=== PATIENT | male | born 1985 | race African-American/Black ===

== ENCOUNTER 2021-07-04 15:32 | Inpatient (IN) | payer OTHER ==
[~2021-07-04] VITALS: Ht 198.1 cm; Wt 64.9 kg
[2021-07-04] MEDS ORDERED: ONDANSETRON HCL 4MG/2ML INJ IV STA (16:12)
[2021-07-04] MEDS ORDERED: SODIUM CHLORIDE 0.9% 1,000 ML IV ONE (16:15)
[2021-07-04] MEDS ORDERED: DIPHENHYDRAMINE 50MG/ML VIAL IV ONE (16:15)
[2021-07-04] MEDS ORDERED: LORAZEPAM 2MG/ML CPJ IV ONE (16:15)
[2021-07-04 16:42] LABS: BASOPHILS % 0.8 % (0.0-2.0); EOSINOPHILS % 0.9 % (0.0-5.0); HEMATOCRIT. 40.5 % (42.0-52.0); HEMOGLOBIN. 14.2 g/dL (14.0-18.0); LYMPHOCYTES % 19.8 % (20.0-50.0); MEAN CORPUSCULAR HEMOGLOBIN 33.5 pg (28.0-32.0); MEAN CORPUSCULAR VOLUME 95.6 fL (80.0-94.0); MEAN PLATELET VOLUME 9.5 fl (7.4-10.4); MONOCYTES % 10.8 % (2.0-8.0); NEUTROPHILS % 67.7 % (40.0-76.0); PLATELET 80 x1000/uL (130-400); RED BLOOD CELL COUNT 4.23 mill/uL (4.7-6.1); RED CELL DISTRIBUTION WIDTH 13.7 % (11.6-14.6)
[2021-07-04 16:45] LABS: CLARITY URINE CLEAR (CLEAR); COLOR URINE DARK YELLOW (YELLOW); KETONES URINE 2+ (NEGATIVE); LEUKOCYTE ESTERASE URINE TRACE (NEGATIVE); NITRITE URINE POSITIVE (NEGATIVE); OCCULT BLOOD URINE NEGATIVE (NEGATIVE); PH URINE 6.5 (4.5-8.0); PROTEIN URINE 1+ (NEGATIVE); SPECIFIC GRAVITY URINE 1.016 (1.005-1.030)
[2021-07-04 16:48] LABS: CHLORIDE 94 mEq/L (98-107)
[2021-07-04 16:59] LABS: ETHANOL BLOOD 154 mg/dL
[2021-07-04 17:32] LABS: *AMPHETAMINES SCREEN URINE NEGATIVE (NEGATIVE); *BARBITURATES SCREEN URINE NEGATIVE (NEGATIVE); *BENZODIAZEPINES SCREEN URINE NEGATIVE (NEGATIVE); *COCAINE SCREEN URINE NEGATIVE (NEGATIVE); CANNABINOID URINE SCREEN NEGATIVE (NEGATIVE); METHADONE URINE SCREEN NEGATIVE (NEGATIVE); OPIATES URINE SCREEN NEGATIVE (NEGATIVE); PHENCYCLIDINE URINE SCREEN NEGATIVE (NEGATIVE)
[2021-07-04] MEDS ORDERED: GUAIFENESIN 200MG/10ML SUGAR FREE UDC PO PRN (18:00)
[2021-07-04] MEDS ORDERED: DOCUSATE SODIUM 100MG CAPSULE PO PRN (18:00)
[2021-07-04] MEDS ORDERED: ZOLPIDEM TARTRATE 5MG TABLET PO PRN (18:00)
[2021-07-04] MEDS ORDERED: MAGNESIUM/ALUMINUM HYDROXIDE/SIMETHICONE 30ML UDC PO PRN (18:00)
[2021-07-04] MEDS ORDERED: KETOROLAC 15MG/ML VIAL IV PRN (18:00)
[2021-07-04] MEDS ORDERED: ONDANSETRON HCL 4MG/2ML INJ IV PRN (18:00)
[2021-07-04] MEDS ORDERED: IPRATROPIUM/ALBUTEROL 0.5-3(2.5)MG/3ML NEB NEB PRN (18:00)
[2021-07-04] MEDS ORDERED: LORAZEPAM 2MG/ML CPJ IV PRN (18:00)
[2021-07-04] MEDS ORDERED: CLONIDINE 0.1MG TABLET PO PRN (18:00)
[2021-07-04] MEDS ORDERED: NITROGLYCERIN 0.4MG TABLET SL SL PRN (18:00)
[2021-07-04] MEDS ORDERED: ACETAMINOPHEN 325MG TABLET PO PRN ×2 (18:00)
[2021-07-04] MEDS ORDERED: KCL 20MEQ/100ML PREMIX 100 ML IV NR ×2 (18:00→20:00)
[2021-07-04] MEDS ORDERED: IOHEXOL-300 100 ML BOTTLE ONE (19:47)
[2021-07-04 20:00] VITALS: BP 124/84
[2021-07-04] MEDS ORDERED: POTASSIUM CHLORIDE 20MEQ TABLET SR PO NR (20:00)
[2021-07-04] MEDS ORDERED: ENOXAPARIN 30MG/0.3ML SYR SUBCUT SCH (20:00)
[2021-07-04 20:13] LABS: FOLIC ACID (FOLATE) SERUM 3.3 ng/mL (>5.38)
[2021-07-04 20:45] VITALS: BP 124/84
[2021-07-04] MEDS: CHLORDIAZEPOXIDE 25MG CAPSULE PO SCH (22:27)
[2021-07-05] VITALS (7 sets, daily range): BP systolic 103–132; BP diastolic 70–101
[2021-07-05 01:15] LABS: CREATINE KINASE 223 IU/L (39-308); CREATINE KINASE MB FRACTION 2.1 ng/mL (0.5-3.6)
[2021-07-05] MEDS: CHLORDIAZEPOXIDE 25MG CAPSULE PO SCH ×3 (06:10→21:44)
[2021-07-05 07:52] LABS: BASOPHILS % 0.8 % (0.0-2.0); EOSINOPHILS % 0.6 % (0.0-5.0); HEMATOCRIT. 34.3 % (42.0-52.0); HEMOGLOBIN. 11.9 g/dL (14.0-18.0); LYMPHOCYTES % 15.3 % (20.0-50.0); MEAN CORPUSCULAR HEMOGLOBIN 33.7 pg (28.0-32.0); MEAN CORPUSCULAR VOLUME 96.8 fL (80.0-94.0); MEAN PLATELET VOLUME 10.8 fl (7.4-10.4); MONOCYTES % 12.1 % (2.0-8.0); NEUTROPHILS % 71.2 % (40.0-76.0); PLATELET 66 x1000/uL (130-400); RED BLOOD CELL COUNT 3.54 mill/uL (4.7-6.1); RED CELL DISTRIBUTION WIDTH 13.9 % (11.6-14.6)
[2021-07-05 07:56] LABS: CHLORIDE 96 mEq/L (98-107)
[2021-07-05 08:18] LABS: CREATINE KINASE MB FRACTION 1.5 ng/mL (0.5-3.6)
[2021-07-05] MEDS ORDERED: PANTOPRAZOLE SODIUM 40 MG/VIAL IV SCH (09:00)
[2021-07-05] MEDS ORDERED: LACTULOSE 20G/30ML UDC PO NR (09:45)
[2021-07-05] MEDS ORDERED: LACTULOSE 20G/30ML UDC PO PRN (09:45)
[2021-07-05] MEDS ORDERED: MAGNESIUM 2 G PREMIX 50 ML IV NR (11:00)
[2021-07-05] MEDS ORDERED: POTASSIUM PHOS,M-BASIC-D-BASIC 30 MMOL in DEXT 5% WATER 500 ML IV ONE (13:00)
[2021-07-05] MEDS ORDERED: THIAMINE HCL 100MG TABLET PO SCH (13:30)
[2021-07-06] MEDS ORDERED: MULTIVITAMINS,THER W-MINERALS TABLET PO SCH (09:00)
[2021-07-06] MEDS ORDERED: FOLIC ACID 1MG TABLET PO SCH (09:00)
== END 2021-07-05 22:45 | disposition left against medical advice (07) | DRG 641 ==
LOC: ER 15:32 → 7WST 17:58 → ENRESERV 19:03
PROVIDERS: ADMIT Internal Medicine; ATTEND Internal Medicine
DX: E87.6 Hypokalemia (principal); F10.239 Alcohol dependence with withdrawal, unspecified; K92.2 Gastrointestinal hemorrhage, unspecified; E87.1 Hypo-osmolality and hyponatremia; E86.0 Dehydration; R74.01 Elevation of levels of liver transaminase levels; F43.10 Post-traumatic stress disorder, unspecified; Z71.41 Alcohol abuse counseling and surveillance of alcoholic
CPT/HCPCS: 36415; 73560; 74177; 80053; 80305; 80320; 81003; 82140; 82550; 82553; 82607; 82746; 83036; 83540; 83550; 83735; 84100; 84443; 84484; 85025; 93005; 93306; 93970; 99285; C9113; J1200; J2060; J2405; J3475; J3480; J3490; J7030; J7060; Q9967; G0480

== ENCOUNTER 2021-08-29 11:24 | Emergency (ER) | payer OTHER ==
[~2021-08-29] VITALS: Ht 198.1 cm; Wt 71.0 kg
[2021-08-29 11:44] VITALS: BP 141/95
[2021-08-29] MEDS ORDERED: MAGNESIUM/ALUMINUM HYDROXIDE/SIMETHICONE 30ML UDC PO STA (12:28)
[2021-08-29] MEDS ORDERED: ONDANSETRON HCL 4MG/2ML INJ IV STA (12:28)
[2021-08-29] MEDS ORDERED: VISCOUS LIDOCAINE 2% 15 ML UDC PO STA (12:28)
[2021-08-29] MEDS ORDERED: SODIUM CHLORIDE 0.9% 1,000 ML IV ONE (12:30)
[2021-08-29 12:51] LABS: BASOPHILS % 0.4 % (0.0-2.0); EOSINOPHILS % 0.3 % (0.0-5.0); HEMATOCRIT. 45.8 % (42.0-52.0); HEMOGLOBIN. 15.4 g/dL (14.0-18.0); LYMPHOCYTES % 12.7 % (20.0-50.0); MEAN CORPUSCULAR HEMOGLOBIN 33.4 pg (28.0-32.0); MEAN CORPUSCULAR VOLUME 99.3 fL (80.0-94.0); MEAN PLATELET VOLUME 9.1 fl (7.4-10.4); MONOCYTES % 7.2 % (2.0-8.0); NEUTROPHILS % 79.4 % (40.0-76.0); PLATELET 64 x1000/uL (130-400); RED BLOOD CELL COUNT 4.61 mill/uL (4.7-6.1); RED CELL DISTRIBUTION WIDTH 13.7 % (11.6-14.6)
[2021-08-29 13:01] LABS: CHLORIDE 91 mEq/L (98-107)
[2021-08-29 13:35] LABS: ETHANOL BLOOD < 10 mg/dL
[2021-08-29 14:14] LABS: CLARITY URINE CLOUDY (CLEAR); COLOR URINE ORANGE (YELLOW); KETONES URINE 3+ (NEGATIVE); LEUKOCYTE ESTERASE URINE 1+ (NEGATIVE); NITRITE URINE POSITIVE (NEGATIVE); OCCULT BLOOD URINE NEGATIVE (NEGATIVE); PROTEIN URINE 2+ (NEGATIVE); SPECIFIC GRAVITY URINE 1.033 (1.005-1.030)
[2021-08-29 14:54] LABS: *AMPHETAMINES SCREEN URINE NEGATIVE (NEGATIVE); *BARBITURATES SCREEN URINE NEGATIVE (NEGATIVE); *BENZODIAZEPINES SCREEN URINE PRESUMTIVE POSITIVE (NEGATIVE); *COCAINE SCREEN URINE NEGATIVE (NEGATIVE); CANNABINOID URINE SCREEN NEGATIVE (NEGATIVE); METHADONE URINE SCREEN NEGATIVE (NEGATIVE); OPIATES URINE SCREEN NEGATIVE (NEGATIVE); PHENCYCLIDINE URINE SCREEN NEGATIVE (NEGATIVE)
[2021-08-29] MEDS ORDERED: CEPHALEXIN 250MG CAPSULE PO ONE (15:45)
[2021-08-29] MEDS ORDERED: PROT40 MT (15:58)
[2021-08-29] MEDS ORDERED: CEPH500C2 MT (15:58)
== END 2021-08-29 16:08 | disposition home or self-care (01) ==
LOC: ER 11:24
DX: K29.70 Gastritis, unspecified, without bleeding (principal); N39.0 Urinary tract infection, site not specified; N20.0 Calculus of kidney; K70.30 Alcoholic cirrhosis of liver without ascites; E87.6 Hypokalemia; F10.20 Alcohol dependence, uncomplicated; Y90.0 Blood alcohol level of less than 20 mg/100 ml
CPT/HCPCS: 36415; 76705; 80053; 80305; 80320; 81003; 83605; 83690; 85025; 85610; 93005; 96374; 99285; J2405; J7030; G0480

== ENCOUNTER 2021-08-30 21:24 | Emergency (ER) | payer OTHER ==
[~2021-08-30] VITALS: Ht 190.5 cm; Wt 82.0 kg
[~2021-08-30 21:24] MED LIST: CEPH500C2 MT; PROT40 MT
[2021-08-30] MEDS ORDERED: OLANZAPINE 10 MG/VIAL IM ONE (21:30)
[2021-08-30] MEDS ORDERED: MIDAZOLAM HCL 2 MG/2 ML VIAL IM ONE (21:30)
[2021-08-30] MEDS ORDERED: FOLIC ACID 1 MG, THIAMINE HCL 100 MG, MVI, ADULT NO.1 10 ML in DEXTROSE 5% WATER 1,000 ML IV ONE ×4 (21:30)
[2021-08-30 22:38] LABS: CLARITY URINE CLEAR (CLEAR); COLOR URINE DARK YELLOW (YELLOW); KETONES URINE 1+ (NEGATIVE); LEUKOCYTE ESTERASE URINE 1+ (NEGATIVE); NITRITE URINE NEGATIVE (NEGATIVE); OCCULT BLOOD URINE NEGATIVE (NEGATIVE); PROTEIN URINE 2+ (NEGATIVE); SPECIFIC GRAVITY URINE 1.016 (1.005-1.030)
[2021-08-30 22:40] LABS: BASOPHILS % 0.4 % (0.0-2.0); EOSINOPHILS % 0.2 % (0.0-5.0); HEMATOCRIT. 43.1 % (42.0-52.0); HEMOGLOBIN. 14.4 g/dL (14.0-18.0); LYMPHOCYTES % 10.9 % (20.0-50.0); MEAN CORPUSCULAR HEMOGLOBIN 33.5 pg (28.0-32.0); MEAN CORPUSCULAR VOLUME 100.4 fL (80.0-94.0); MEAN PLATELET VOLUME 10.9 fl (7.4-10.4); MONOCYTES % 9.3 % (2.0-8.0); NEUTROPHILS % 79.2 % (40.0-76.0); PLATELET 64 x1000/uL (130-400); RED BLOOD CELL COUNT 4.29 mill/uL (4.7-6.1); RED CELL DISTRIBUTION WIDTH 13.7 % (11.6-14.6)
[2021-08-30] MEDS ORDERED: CEFTRIAXONE 1 G PREMIX 50 ML IV ONE (22:45)
[2021-08-30 22:46] LABS: CHLORIDE 95 mEq/L (98-107)
[2021-08-30 22:49] LABS: *AMPHETAMINES SCREEN URINE NEGATIVE (NEGATIVE); *BARBITURATES SCREEN URINE NEGATIVE (NEGATIVE); *BENZODIAZEPINES SCREEN URINE PRESUMTIVE POSITIVE (NEGATIVE); *COCAINE SCREEN URINE NEGATIVE (NEGATIVE); CANNABINOID URINE SCREEN PRESUMTIVE POSITIVE (NEGATIVE); METHADONE URINE SCREEN NEGATIVE (NEGATIVE); OPIATES URINE SCREEN NEGATIVE (NEGATIVE); PHENCYCLIDINE URINE SCREEN NEGATIVE (NEGATIVE)
[2021-08-30 22:52] LABS: ETHANOL BLOOD < 10 mg/dL
[2021-08-31] MEDS ORDERED: DIAZEPAM 5 MG/ML 2ML CPJ IV ONE (00:30)
[2021-08-31] MEDS: RISPERIDONE 1MG TABLET PO SCH ×2 (11:15→22:57)
[2021-08-31] MEDS: FLUOXETINE HCL 10 MG CAPSULE PO SCH (11:15)
[2021-09-01] MEDS ORDERED: DIPHENHYDRAMINE 50MG CAPSULE PO ONE (06:45)
[2021-09-01] MEDS: RISPERIDONE 1MG TABLET PO SCH ×2 (08:56→21:09)
[2021-09-01] MEDS: FLUOXETINE HCL 10 MG CAPSULE PO SCH (08:56)
[2021-09-01] MEDS ORDERED: ZIPRASIDONE MESYLATE 20MG/VIAL IM ONE (23:45)
[2021-09-02] MEDS: RISPERIDONE 1MG TABLET PO SCH (12:39)
[2021-09-02] MEDS: FLUOXETINE HCL 10 MG CAPSULE PO SCH (12:40)
[2021-09-02] MEDS ORDERED: MIDAZOLAM HCL 2 MG/2 ML VIAL IM ONE (17:30)
[2021-09-03] MEDS: RISPERIDONE 1MG TABLET PO SCH ×3 (00:16→21:18)
[2021-09-03] MEDS: FLUOXETINE HCL 10 MG CAPSULE PO SCH (09:22)
[2021-09-04] MEDS: FLUOXETINE HCL 10 MG CAPSULE PO SCH (08:42)
[2021-09-04] MEDS: RISPERIDONE 1MG TABLET PO SCH (08:42)
[2021-09-04 11:45] VITALS: BP 133/79
== END 2021-09-04 11:45 | disposition home or self-care (01) ==
LOC: ER 21:24
DX: F19.10 Other psychoactive substance abuse, uncomplicated (principal); K74.60 Unspecified cirrhosis of liver; Z87.820 Personal history of traumatic brain injury; Z20.822 Contact with and (suspected) exposure to COVID-19
CPT/HCPCS: 36415; 80053; 80305; 80307; 80320; 80329; 81003; 85025; 96365; 96372; 96375; 99285; C9803; J0696; J2250; J3411; J3486; J3490; J7070; Q0163; U0003; U0005; G0480

== ENCOUNTER 2022-01-31 14:35 | Inpatient (IN) | payer OTHER ==
[~2022-01-31] VITALS: Ht 198.1 cm; Wt 73.5 kg
[2022-01-31] MEDS ORDERED: MAGNESIUM/ALUMINUM HYDROXIDE/SIMETHICONE 30ML UDC PO STA ×2 (19:05)
[2022-01-31] MEDS ORDERED: VISCOUS LIDOCAINE 2% 15 ML UDC PO STA (19:05)
[2022-01-31 19:38] LABS: BASOPHILS % 0.3 % (0.0-2.0); EOSINOPHILS % 1.2 % (0.0-5.0); HEMATOCRIT. 44.2 % (42.0-52.0); HEMOGLOBIN. 14.8 g/dL (14.0-18.0); LYMPHOCYTES % 14.4 % (20.0-50.0); MEAN CORPUSCULAR HEMOGLOBIN 29.9 pg (28.0-32.0); MEAN CORPUSCULAR VOLUME 89.3 fL (80.0-94.0); MONOCYTES % 13.3 % (2.0-8.0); NEUTROPHILS % 70.8 % (40.0-76.0); RED BLOOD CELL COUNT 4.95 mill/uL (4.7-6.1); RED CELL DISTRIBUTION WIDTH 15.5 % (11.6-14.6)
[2022-01-31 19:44] LABS: CHLORIDE 91 mEq/L (98-107); PROTHROMBIN TIME 10.3 sec (9.6-11.0)
[2022-01-31 20:03] LABS: MEAN PLATELET VOLUME 9.7 fl (7.4-10.4); PLATELET 89 x1000/uL (130-400)
[2022-01-31] MEDS ORDERED: SODIUM CHLORIDE 0.9% 1,000 ML IV ONE (21:00)
[2022-01-31] MEDS ORDERED: MORPHINE SULFATE 4 MG/ML CPJ (NOT FOR IM USE) IV ONE (21:15)
[2022-02-01] MEDS ORDERED: KCL 10MEQ/50ML PREMIX 50 ML IV NR (09:00)
[2022-02-01] MEDS ORDERED: ENOXAPARIN 40MG/0.4ML SYR SUBCUT SCH (09:00)
[2022-02-01 11:15] VITALS: BP 121/76
[2022-02-01 12:00] VITALS: BP 129/89
[2022-02-01] MEDS ORDERED: FOLIC ACID 1 MG, THIAMINE HCL 100 MG, MVI, ADULT NO.1 10 ML in SODIUM CHLORIDE 0.9% 1,0... IV ONE ×4 (13:00)
== END 2022-02-01 13:10 | disposition left against medical advice (07) | DRG 440 ==
LOC: ER 14:35 → EDBEDREQSVC 21:44 → EDBEDREQTM 21:44 → 6EST 02-01 00:24 → EDBEDREQTM 02-01 00:33 → EDBEDREQ 02-01 00:33 → CANBEDREQ 02-01 00:53 → 7WST 02-01 11:08
PROVIDERS: ADMIT Internal Medicine; ATTEND Internal Medicine
DX: K85.90 Acute pancreatitis without necrosis or infection, unspecified (principal); K70.30 Alcoholic cirrhosis of liver without ascites; F10.20 Alcohol dependence, uncomplicated; R06.02 Shortness of breath; Z53.29 Procedure and treatment not carried out because of patient's decision for other reasons
CPT/HCPCS: 36415; 74176; 76700; 80053; 84478; 85025; 99285; J2270; J3411; J3480; J3490; J7030

== ENCOUNTER 2022-03-05 22:17 | Emergency (ER) | payer OTHER ==
[~2022-03-05] VITALS: Ht 198.1 cm; Wt 70.0 kg
[2022-03-05 22:34] VITALS: BP 122/84
== END 2022-03-06 00:31 | disposition left against medical advice (07) ==
LOC: ER 22:17
DX: Z53.21 Procedure and treatment not carried out due to patient leaving prior to being seen by health care provider (principal); K70.30 Alcoholic cirrhosis of liver without ascites

== ENCOUNTER 2023-05-16 20:19 | Inpatient (IN) | payer OTHER ==
[~2023-05-16] VITALS: Ht 193 cm; Wt 70.8 kg
[~2023-05-16 20:19] MED LIST changes: -CEPH500C2 MT
[2023-05-16] MEDS: SODIUM CHLORIDE 0.9% 1,000 ML IV ONE (22:42)
[2023-05-16] MEDS: ONDANSETRON HCL 4MG/2ML INJ IV ONE (22:43)
[2023-05-16] MEDS: FAMOTIDINE 20MG/2ML VIAL IV NR (22:43)
[2023-05-16] MEDS: FAMOTIDINE 20MG/2ML VIAL IV ONE (22:43)
[2023-05-16] MEDS: MORPHINE SULFATE 2 MG/ML CPJ (NOT FOR IM USE) IV NR (22:43)
[2023-05-16] MEDS: CEFTRIAXONE 1GM/50ML 50 ML IV NR (22:43)
[2023-05-16] MEDS: ONDANSETRON HCL 4MG/2ML INJ IV NR (22:44)
[2023-05-16 22:46] LABS: DIFFERENTIAL COMMENT 1; HEMATOCRIT. 37.8 % (42.0-52.0); HEMOGLOBIN. 12.3 g/dL (14.0-18.0); MEAN CORPUSCULAR HEMOGLOBIN 34.2 pg (28.0-32.0); MEAN CORPUSCULAR HGB CONC 32.6 g/dL (31.0-37.0); MEAN CORPUSCULAR VOLUME 105.1 fL (80.0-94.0); PLATELET 91 x1000/uL (130-400); RED CELL DISTRIBUTION WIDTH 14.9 % (11.6-14.6); WHITE BLOOD COUNT 7.3 x1000/uL (4.5-11.0)
[2023-05-16 22:55] LABS: INR 1.4; PROTHROMBIN TIME 14.9 sec (9.6-11.0)
[2023-05-16 23:06] LABS: LACTIC ACID 5.1 mmol/L (0.4-2.0)
[2023-05-16 23:11] LABS: ALANINE AMINOTRANSFERASE 42 IU/L (10-49); ALBUMIN 2.7 g/dL (3.2-4.8); ASPARTATE AMINOTRANSFERASE 119 IU/L (<34); CALCIUM 6.9 mg/dL (8.7-10.4); CARBON DIOXIDE 24 mEq/L (21-32); CHLORIDE 98 mEq/L (98-107); CREATININE 0.6 mg/dL (0.6-1.3); ETHANOL BLOOD 366 mg/dL (<10); GLUCOSE 111 mg/dL (70-105); SODIUM 136 mEq/L (136-145); UREA NITROGEN BLOOD 6 mg/dL (9-23)
[2023-05-16 23:14] LABS: POTASSIUM 2.6 mEq/L (3.5-5.1); TROPONIN I HIGH SENSITIVITY < 4 ng/L (3.0-53)
[2023-05-16 23:26] LABS: NUCLEATED RED BLOOD CELLS 2 /100 WBC; PLATELET ESTIMATE DECREASED
[2023-05-16] MEDS: LORAZEPAM 2MG/ML INJ IV NR (23:26)
[2023-05-16 23:27] LABS: ANISOCYTOSIS 1+
[2023-05-17] MEDS: CALCIUM GLUCONATE 1GM PREMIX 50 ML IV NR (00:19)
[2023-05-17] MEDS: FOLIC ACID 1 MG, THIAMINE HCL 100 MG, MVI, ADULT NO.1 10 ML in DEXTROSE 5% WATER 1,000 ML IV ONE (00:30)
[2023-05-17] MEDS: POTASSIUM CHLORIDE 20MEQ/PACKET PO NR (00:31)
[2023-05-17 03:56] VITALS: BP 124/56; PULSE 92; RESP 18; TEMP 97.8
[2023-05-17] MEDS ORDERED: NON FORMULARY PATIENT HOME MED XX SCH (05:00)
[2023-05-17 08:00] VITALS: BP_SYST 119; BP_SYST 97; BP_DIAS 70; BP_DIAS 84; PULSE 77; PULSE 92; RESP 18; TEMP 97.1; TEMP 98.5
[2023-05-17] MEDS: PANTOPRAZOLE SODIUM 40 MG/VIAL IV SCH (08:36)
[2023-05-17 12:00] VITALS: BP 116/85; PULSE 116; RESP 20; TEMP 96.5
[2023-05-17 12:25] LABS: CLARITY URINE CLEAR (CLEAR); COLOR URINE ORANGE (YELLOW); GLUCOSE URINE NEGATIVE (NEGATIVE); KETONES URINE NEGATIVE (NEGATIVE); LEUKOCYTE ESTERASE URINE 1+ (NEGATIVE); NITRITE URINE POSITIVE (NEGATIVE); OCCULT BLOOD URINE NEGATIVE (NEGATIVE); PROTEIN URINE 1+ (NEGATIVE); SPECIFIC GRAVITY URINE 1.021 (1.005-1.030)
[2023-05-17 13:21] LABS: MUCUS URINE TRACE /lpf (NONE/TRACE)
[2023-05-17 13:22] LABS: BACTERIA URINE TRACE; SQUAMOUS EPITHELIAL CELL URINE RARE /lpf (RARE/1+)
[2023-05-17 13:23] LABS: RBC URINE NONE SEEN /hpf (0-2); WBC URINE 0-2 /hpf (0-2)
[2023-05-17 14:33] LABS: POTASSIUM 2.8 mEq/L (3.5-5.1)
[2023-05-17 16:00] VITALS: BP 126/78; PULSE 125; RESP 18; TEMP 97.7
[2023-05-17] MEDS: POTASSIUM CHLORIDE 20MEQ TABLET SR PO NR (16:26)
[2023-05-17] MEDS: MAGNESIUM 4 G PREMIX 100 ML IV NR (16:26)
[2023-05-17 20:00] VITALS: BP 124/85; PULSE 123; RESP 17; TEMP 97.5
[2023-05-18] VITALS: BP 144/81; PULSE 103; RESP 18; TEMP 97.5
[2023-05-18] MEDS: SODIUM BICARBONATE 4% (2.4MEQ) 5ML VIAL IV ONE (07:36)
[2023-05-18] MEDS: LIDOCAINE HCL 1% 10 MG/ML 10ML VIAL ONE (07:36)
[2023-05-18 12:00] VITALS: BP 127/79; PULSE 104; RESP 20; TEMP 97.7
[2023-05-18] MEDS ORDERED: CHLORDIAZEPOXIDE 25MG CAPSULE PO SCH (14:00)
[2023-05-18] MEDS: CEFTRIAXONE 1GM/50ML 50 ML IV SCH (14:57)
[2023-05-18 16:00] VITALS: BP 124/84; PULSE 113; RESP 20; TEMP 97.2
[2023-05-18] MEDS: DEXT 5%/0.45% NACL 1000ML 1,000 ML IV SCH (16:07)
[2023-05-18 16:24] LABS: CALCIUM 7.4 mg/dL (8.7-10.4); CARBON DIOXIDE 28 mEq/L (21-32); CHLORIDE 102 mEq/L (98-107); CREATININE 0.5 mg/dL (0.6-1.3); GLUCOSE 84 mg/dL (70-105); POTASSIUM 3.6 mEq/L (3.5-5.1); SODIUM 137 mEq/L (136-145); UREA NITROGEN BLOOD 6 mg/dL (9-23)
[2023-05-18 16:56] LABS: AMMONIA 265 uMol/L (<32)
[2023-05-18 20:00] VITALS: BP 128/89; PULSE 120; RESP 18; TEMP 97
[2023-05-18] MEDS: FOLIC ACID 1 MG, THIAMINE HCL 100 MG, MVI, ADULT NO.1 10 ML in DEXTROSE 5% WATER 1,000 ML IV SCH (23:52)
[2023-05-18] MEDS: LACTULOSE 20G/30ML UDC PO SCH (23:53)
[2023-05-19 07:29] LABS: HEMATOCRIT 37.2 % (42.0-52.0); HEMOGLOBIN 12.3 g/dL (14.0-18.0); MEAN CORPUSCULAR HEMOGLOBIN 33.9 pg (28.0-32.0); MEAN CORPUSCULAR HGB CONC 33.1 g/dL (31.0-37.0); MEAN CORPUSCULAR VOLUME 102.5 fL (80.0-94.0); PLATELET 79 x1000/uL (130-400); RED BLOOD CELL COUNT 3.63 mill/uL (4.7-6.1); RED CELL DISTRIBUTION WIDTH 14.7 % (11.6-14.6); WHITE BLOOD COUNT 8.6 x1000/uL (4.5-11.0)
[2023-05-19 07:48] LABS: CALCIUM 7.4 mg/dL (8.7-10.4); CARBON DIOXIDE 29 mEq/L (21-32); CHLORIDE 98 mEq/L (98-107); CREATININE 0.5 mg/dL (0.6-1.3); GLUCOSE 105 mg/dL (70-105); PHOSPHORUS 1.4 mg/dL (2.5-4.9); SODIUM 130 mEq/L (136-145); UREA NITROGEN BLOOD 6 mg/dL (9-23)
[2023-05-19 08:00] VITALS: BP 113/85; PULSE 108; RESP 18; TEMP 97
[2023-05-19 12:00] VITALS: BP 125/76; PULSE 114; RESP 18; TEMP 98
[2023-05-19] MEDS ORDERED: POTASSIUM CHLORIDE 20MEQ/PACKET PO SCH (12:15)
[2023-05-19 13:17] LABS: AMMONIA 145 uMol/L (<32)
[2023-05-19] MEDS: POTASSIUM PHOSPHATE 20 MMOL in DEXT 5% WATER 243.3333 ML IV SCH (15:01)
[2023-05-19] MEDS: MAGNESIUM 2 G PREMIX 50 ML IV SCH (15:02)
[2023-05-19 16:00] VITALS: BP 116/77; PULSE 117; RESP 20; TEMP 98.6
[2023-05-19 20:00] VITALS: BP 119/69; PULSE 113; RESP 20; TEMP 98.2
[2023-05-19] MEDS: KCL 20MEQ/100ML PREMIX 100 ML IV SCH (20:30)
[2023-05-19 23:17] LABS: BG BASE EXCESS 5.1 mmol/L (-2.0-2.0); BG CARBOXYHEMOGLOBIN 1.2 % (0.5-1.5); BG DEOXYHEMOGLOBIN 3.7 % (0.0-5.0); BG FRACTION INSPIRED OXYGEN 28; BG HCO3 ACT 26.3 mmol/L (22.0-26.0); BG METHEMOGLOBIN 0.2 % (0.0-1.5); BG OXYGEN SATURATION 96.2 % (92.0-98.5); BG OXYHEMOGLOBIN 94.9 % (94.0-97.0); BG PCO2 28.6 mmHg (35.0-45.0); BG PH 7.582 (7.350-7.450); BG PO2 79.6 mmHg (75.0-100.0); BG TOTAL HEMOGLOBIN 12.8 g/dL (12.0-18.0); BG VENT MODE NASAL CANNULA
[2023-05-20] VITALS: BP 120/83; PULSE 114; RESP 20; TEMP 97.8
[2023-05-20 04:00] VITALS: BP 118/75; PULSE 72; RESP 18; TEMP 97.7
[2023-05-20 06:13] LABS: AMMONIA 74 uMol/L (<32)
[2023-05-20 07:03] LABS: FOLIC ACID (FOLATE) SERUM > 20.00 ng/mL (>5.38); HEPATITIS A AB IGM NEGATIVE (Negative); HEPATITIS B CORE AB IGM NEGATIVE (Negative); HEPATITIS B SURFACE ANTIGEN NEGATIVE (Negative); HEPATITIS C AB NON REACTIVE (Neg) (Negative)
[2023-05-20 08:00] VITALS: BP 124/87; PULSE 116; RESP 20; TEMP 97.7
[2023-05-20] MEDS: RIFAXIMIN 550 MG TABLET NG SCH (09:11)
[2023-05-20] MEDS: LORAZEPAM 2MG/ML INJ IV PRN (11:51)
[2023-05-20 16:00] VITALS: BP 97/63; PULSE 119; RESP 20; TEMP 97.7
[2023-05-20 16:56] LABS: ALANINE AMINOTRANSFERASE 32 IU/L (10-49); ALBUMIN 2.3 g/dL (3.2-4.8); ASPARTATE AMINOTRANSFERASE 78 IU/L (<34); BILIRUBIN DIRECT 3.6 mg/dL (<=3.0); BILIRUBIN TOTAL 4.8 mg/dL (0.1-1.0); CALCIUM 7.3 mg/dL (8.7-10.4); CARBON DIOXIDE 25 mEq/L (21-32); CHLORIDE 102 mEq/L (98-107); CREATININE 0.5 mg/dL (0.6-1.3); GLUCOSE 79 mg/dL (70-105); POTASSIUM 3.3 mEq/L (3.5-5.1); PROTEIN TOTAL 5.3 g/dL (6.0-8.3); SODIUM 134 mEq/L (136-145)
[2023-05-20 17:04] LABS: UREA NITROGEN BLOOD < 5 mg/dL (9-23)
[2023-05-20 20:00] VITALS: BP 108/72; PULSE 132; RESP 20; TEMP 98.2
[2023-05-21] VITALS: BP 115/60; PULSE 79; RESP 20; TEMP 99
[2023-05-21 04:00] VITALS: BP 108/66; PULSE 79; RESP 18; TEMP 97.6
[2023-05-21 08:00] VITALS: BP 93/63; PULSE 112; RESP 18; TEMP 97.9
[2023-05-21] MEDS: POTASSIUM CHLORIDE 20MEQ TABLET SR PO SCH (08:00)
[2023-05-21 12:00] VITALS: BP 127/75; PULSE 122; RESP 18; TEMP 97.5
[2023-05-21 12:08] LABS: HEMATOCRIT. 35.8 % (42.0-52.0); MEAN CORPUSCULAR HEMOGLOBIN 34.2 pg (28.0-32.0); MEAN CORPUSCULAR HGB CONC 33.5 g/dL (31.0-37.0); MEAN CORPUSCULAR VOLUME 102.1 fL (80.0-94.0); MEAN PLATELET VOLUME 9.6 fl (7.4-10.4); PLATELET 110 x1000/uL (130-400); RED BLOOD CELL COUNT 3.51 mill/uL (4.7-6.1); RED CELL DISTRIBUTION WIDTH 15.1 % (11.6-14.6); WHITE BLOOD COUNT 8.3 x1000/uL (4.5-11.0)
[2023-05-21 12:11] LABS: DIFFERENTIAL COMMENT 1
[2023-05-21 12:16] LABS: INR 1.7; PROTHROMBIN TIME 18.3 sec (9.6-11.0)
[2023-05-21 12:31] LABS: BILIRUBIN TOTAL 4.8 mg/dL (0.1-1.0); CALCIUM 7.3 mg/dL (8.7-10.4); CARBON DIOXIDE 25 mEq/L (21-32); CHLORIDE 98 mEq/L (98-107); CREATININE 0.8 mg/dL (0.6-1.3); GLUCOSE 101 mg/dL (70-105); POTASSIUM 3.6 mEq/L (3.5-5.1); SODIUM 129 mEq/L (136-145); UREA NITROGEN BLOOD 7 mg/dL (9-23)
[2023-05-21 12:39] LABS: ANISOCYTOSIS 1+; PLATELET ESTIMATE DECREASED
[2023-05-21 12:43] LABS: AMMONIA 151 uMol/L (<32)
[2023-05-21 16:00] VITALS: BP 103/75; PULSE 121; RESP 18; TEMP 98.6
[2023-05-21 20:00] VITALS: BP 105/76; PULSE 105; RESP 17; TEMP 97.9
[2023-05-22] VITALS: BP 115/76; PULSE 104; RESP 18; TEMP 98
[2023-05-22 04:00] VITALS: BP 112/77; PULSE 96; RESP 17; TEMP 97.5
[2023-05-22] MEDS: SODIUM CHLORIDE 0.9% 1,000 ML IV SCH (06:45)
[2023-05-22 06:49] LABS: INR 1.6; PROTHROMBIN TIME 17.5 sec (9.6-11.0)
[2023-05-22 06:59] LABS: CALCIUM 7.6 mg/dL (8.7-10.4); CARBON DIOXIDE 24 mEq/L (21-32); CHLORIDE 101 mEq/L (98-107); CREATININE 0.8 mg/dL (0.6-1.3); GLUCOSE 77 mg/dL (70-105); POTASSIUM 4.1 mEq/L (3.5-5.1); SODIUM 133 mEq/L (136-145); UREA NITROGEN BLOOD 9 mg/dL (9-23)
[2023-05-22 07:08] LABS: HEMATOCRIT. 36.2 % (42.0-52.0); MEAN CORPUSCULAR HEMOGLOBIN 34.4 pg (28.0-32.0); MEAN CORPUSCULAR HGB CONC 33.2 g/dL (31.0-37.0); MEAN CORPUSCULAR VOLUME 103.4 fL (80.0-94.0); MEAN PLATELET VOLUME 9.9 fl (7.4-10.4); PLATELET 116 x1000/uL (130-400); RED CELL DISTRIBUTION WIDTH 15.8 % (11.6-14.6); WHITE BLOOD COUNT 8.8 x1000/uL (4.5-11.0)
[2023-05-22 07:28] LABS: DIFFERENTIAL COMMENT 1
[2023-05-22 08:00] VITALS: BP 99/73; PULSE 107; RESP 19; TEMP 97.9
[2023-05-22 12:00] VITALS: BP 125/86; PULSE 102; RESP 20; TEMP 97.9
[2023-05-22 16:00] VITALS: BP 103/68; PULSE 55; RESP 20; TEMP 97.7
[2023-05-22 16:08] LABS: PLATELET ESTIMATE DECREASED
[2023-05-22 20:00] VITALS: PULSE 78; RESP 18; TEMP 97.3
[2023-05-22] MEDS: HYDROCODONE/ACETAMINOPHEN 5/325MG TABLET PO PRN (22:11)
[2023-05-22] MEDS ORDERED: NALOXONE HCL 0.4MG/ML VIAL IV PRN (22:15)
[2023-05-23] VITALS: BP 110/80; PULSE 97; RESP 17; TEMP 97.3
[2023-05-23 02:38] LABS: AMMONIA 89 uMol/L (<32)
[2023-05-23 07:04] LABS: HEMATOCRIT. 39.3 % (42.0-52.0); HEMOGLOBIN. 12.9 g/dL (14.0-18.0); MEAN CORPUSCULAR HEMOGLOBIN 34.5 pg (28.0-32.0); MEAN CORPUSCULAR HGB CONC 32.9 g/dL (31.0-37.0); MEAN CORPUSCULAR VOLUME 105.1 fL (80.0-94.0); MEAN PLATELET VOLUME 9.1 fl (7.4-10.4); PLATELET 139 x1000/uL (130-400); RED BLOOD CELL COUNT 3.74 mill/uL (4.7-6.1); RED CELL DISTRIBUTION WIDTH 16.1 % (11.6-14.6); WHITE BLOOD COUNT 8.3 x1000/uL (4.5-11.0)
[2023-05-23 07:26] LABS: DIFFERENTIAL COMMENT 1
[2023-05-23 07:49] LABS: CALCIUM 7.3 mg/dL (8.7-10.4); CARBON DIOXIDE 24 mEq/L (21-32); CHLORIDE 103 mEq/L (98-107); CREATININE 0.6 mg/dL (0.6-1.3); GLUCOSE 87 mg/dL (70-105); SODIUM 134 mEq/L (136-145); UREA NITROGEN BLOOD 6 mg/dL (9-23)
[2023-05-23 08:00] VITALS: BP 138/79; PULSE 89; RESP 16; TEMP 97.4
[2023-05-23 08:19] LABS: AMMONIA 98 uMol/L (<32)
[2023-05-23 12:00] VITALS: BP 118/79; PULSE 86; RESP 20; TEMP 98.7
[2023-05-23 14:14] LABS: PLATELET ESTIMATE NORMAL
[2023-05-23 16:00] VITALS: BP 128/86; PULSE 88; RESP 20; TEMP 98.9
[2023-05-23] MEDS ORDERED: FURO-151 MT (17:34)
[2023-05-23] MEDS ORDERED: LACT10SO3 MT (17:34)
[2023-05-23] MEDS ORDERED: SPIR50TA5 MT (17:34)
[2023-05-23 20:00] VITALS: BP 105/77; PULSE 100; RESP 20; TEMP 98.4
[2023-05-23] MEDS: ONDANSETRON HCL 4MG/2ML INJ IV PRN (20:17)
[2023-05-24] VITALS: BP 106/78; PULSE 100; RESP 20; TEMP 98.2
[2023-05-24 04:00] VITALS: BP 92/59; PULSE 100; RESP 20; TEMP 98
[2023-05-24 06:56] LABS: INR 1.5; PROTHROMBIN TIME 16.5 sec (9.6-11.0)
[2023-05-24 08:00] VITALS: BP 102/74; PULSE 93; RESP 18; TEMP 97.7
[2023-05-24 11:05] VITALS: BP 102/74; PULSE 93; TEMP 97.7; O2SAT 100
[2023-05-24 12:00] VITALS: BP 101/75; PULSE 104; RESP 18; TEMP 98
== END 2023-05-24 14:25 | disposition home or self-care (01) | DRG 432 ==
LOC: ER 20:19 → EDBEDREQ 05-17 01:00 → EDBEDREQTM 05-17 01:00 → EDBEDREQDT 05-17 01:00 → 8WST 05-17 03:39
PROVIDERS: ADMIT Internal Medicine; ATTEND Internal Medicine
PROC: 0W9G3ZZ Drainage of Peritoneal Cavity, Percutaneous Approach (ICD-10-PCS; principal; 2023-05-18)
PROC: 0W9G3ZZ Drainage of Peritoneal Cavity, Percutaneous Approach (ICD-10-PCS; 2023-05-24)
DX: K70.31 Alcoholic cirrhosis of liver with ascites (principal); E43 Unspecified severe protein-calorie malnutrition; G93.41 Metabolic encephalopathy; Z68.1 Body mass index [BMI] 19.9 or less, adult; E72.20 Disorder of urea cycle metabolism, unspecified; K76.82 Hepatic encephalopathy; F10.229 Alcohol dependence with intoxication, unspecified; E83.51 Hypocalcemia; E87.6 Hypokalemia; D64.9 Anemia, unspecified; D69.6 Thrombocytopenia, unspecified; F43.10 Post-traumatic stress disorder, unspecified; E80.6 Other disorders of bilirubin metabolism; F17.210 Nicotine dependence, cigarettes, uncomplicated; Z79.899 Other long term (current) drug therapy; Y90.8 Blood alcohol level of 240 mg/100 ml or more
CPT/HCPCS: 36415; 36600; 49083; 71045; 74176; 76700; 80048; 80053; 80076; 80320; 81003; 82105; 82140; 82247; 82375; 82746; 82805; 83605; 83735; 84100; 84132; 84484; 85025; 85027; 86705; 86709; 87340; 93005; 97116; 97162; 97530; 99285; C1893; C9113; J0610; J0696; J2060; J2270; J2405; J3411; J3475; J3480; J3490; J7030; J7060; J7070; G0480

== ENCOUNTER 2023-05-30 20:20 | Emergency (ER) | payer OTHER ==
[~2023-05-30] VITALS: Ht 198.1 cm; Wt 82.0 kg
[~2023-05-30 20:20] MED LIST changes: +FURO-151 MT; +LACT10SO3 MT; +SPIR50TA5 MT
[2023-05-30 20:38] VITALS: BP 154/91; PULSE 110; RESP 20; TEMP 98; O2SAT 99
[2023-06-04] MEDS ORDERED: MELA10TA3 PO (02:57)
== END 2023-05-30 21:36 | disposition home or self-care (01) ==
LOC: ER 20:20
DX: R14.0 Abdominal distension (gaseous) (principal); F10.20 Alcohol dependence, uncomplicated
CPT/HCPCS: 99283

== ENCOUNTER 2023-06-02 16:51 | Emergency (ER) | payer OTHER ==
[~2023-06-02] VITALS: Ht 198.1 cm; Wt 82.1 kg
[2023-06-02 17:35] VITALS: BP 119/86; PULSE 110; RESP 20; TEMP 98.4; O2SAT 100
[2023-06-04] MEDS ORDERED: MELA10TA3 PO (02:57)
== END 2023-06-02 18:38 | disposition left against medical advice (07) ==
LOC: ER 17:02
DX: R10.9 Unspecified abdominal pain (principal); Z53.21 Procedure and treatment not carried out due to patient leaving prior to being seen by health care provider
CPT/HCPCS: 99281

== ENCOUNTER 2024-11-16 09:02 | Inpatient (IN) | payer OTHER, MEDICAID ==
[~2024-11-16] VITALS: Ht 182.9 cm; Wt 75.7 kg
[~2024-11-16 09:02] MED LIST changes: +LACT-390 MT; -LACT10SO3 MT; +MELA10TA3 PO
[2024-11-16 09:08] VITALS: O2SAT 100
[2024-11-16 09:44] LABS: BASOPHILS % 0.3 % (0.0-2.0); EOSINOPHILS % 0.7 % (0.0-5.0); HEMATOCRIT. 47.9 % (42.0-52.0); HEMOGLOBIN. 15.8 g/dL (14.0-18.0); LYMPHOCYTES % 14.0 % (20.0-50.0); MEAN PLATELET VOLUME 9.8 fl (7.4-10.4); MONOCYTES % 12.7 % (2.0-8.0); NEUTROPHILS % 72.3 % (40.0-76.0); PLATELET 82 x1000/uL (130-400); RED BLOOD CELL COUNT 4.94 mill/uL (4.7-6.1); RED CELL DISTRIBUTION WIDTH 17.1 % (11.6-14.6)
[2024-11-16 10:04] LABS: UREA NITROGEN BLOOD 9 mg/dL (9-23)
[2024-11-16 10:23] LABS: CREATININE 1.5 mg/dL (0.6-1.3)
[2024-11-16] MEDS ORDERED: CHLORDIAZEPOXIDE 25MG CAPSULE PO PRN ×3 (11:00)
[2024-11-16] MEDS ORDERED: PHENOBARBITAL 30 MG TABLET PO PRN ×2 (11:00)
[2024-11-16] MEDS ORDERED: PHENOBARBITAL 60MG TABLET PO PRN (11:00)
[2024-11-16] MEDS ORDERED: LORAZEPAM 1MG TABLET PO PRN ×3 (11:00)
[2024-11-16] MEDS: LORAZEPAM 2MG/ML UD SYRINGE IV NR (11:15)
[2024-11-16] MEDS: LACTATED RINGERS 1,000 ML IV ONE (11:16)
[2024-11-16] MEDS: SODIUM BICARBONATE 150 MEQ in DEXTROSE 5% WATER 850 ML IV SCH (11:34)
[2024-11-16 12:02] LABS: ETHANOL BLOOD < 10 mg/dL (<10)
[2024-11-16 12:03] LABS: ASPARTATE AMINOTRANSFERASE 241 IU/L (<34)
[2024-11-16 12:04] LABS: BILIRUBIN DIRECT 0.6 mg/dL (<=3.0); BILIRUBIN TOTAL 1.1 mg/dL (0.1-1.0); PROTEIN TOTAL 7.5 g/dL (6.0-8.3)
[2024-11-16] MEDS ORDERED: PANTOPRAZOLE SODIUM 40 MG/VIAL IV NR (12:15)
[2024-11-16] MEDS ORDERED: LORAZEPAM 2MG/ML UD SYRINGE IV PRN (12:15)
[2024-11-16] MEDS ORDERED: ONDANSETRON HCL 4MG/2ML INJ IV PRN (12:30)
[2024-11-16] MEDS ORDERED: DIPHENHYDRAMINE 50MG/ML VIAL IV PRN (12:30)
[2024-11-16] MEDS ORDERED: CLONIDINE 0.1MG TABLET PO PRN (12:30)
[2024-11-16] MEDS ORDERED: GUAIFENESIN 200MG/10ML SUGAR FREE UDC PO PRN (12:30)
[2024-11-16] MEDS ORDERED: IPRATROPIUM/ALBUTEROL 0.5-3(2.5)MG/3ML NEB HHN PRN (12:30)
[2024-11-16] MEDS ORDERED: DOCUSATE SODIUM 100MG CAPSULE PO PRN (12:30)
[2024-11-16 12:58] LABS: BG BASE EXCESS -13.3 mmol/L (-2.0-3.0); BG CARBOXYHEMOGLOBIN 0.6 % (0.5-1.5); BG DEOXYHEMOGLOBIN 1.1 % (0.0-5.0); BG FRACTION INSPIRED OXYGEN 21; BG HCO3 ACT 9.3 mmol/L (21.0-28.0); BG METHEMOGLOBIN 0.0 % (0.5-1.5); BG OXYGEN SATURATION 98.9 % (94.0-98.0); BG OXYHEMOGLOBIN 98.3 % (94.0-98.0); BG PCO2 17.2 mmHg (35.0-48.0); BG PH 7.350 (7.350-7.450); BG PO2 124.1 mmHg (83.0-108.0); BG SAMPLE SITE RIGHT RADIAL; BG TOTAL HEMOGLOBIN 15.8 g/dL (13.5-17.5); BG VENT MODE ROOM AIR
[2024-11-16 13:30] VITALS: BP 134/94; PULSE 105; RESP 16; TEMP 36.5848
[2024-11-16 14:31] LABS: FOLIC ACID (FOLATE) SERUM 10.91 ng/mL (>5.38)
[2024-11-16 14:32] LABS: VITAMIN B12 SERUM 736 pg/mL (211-911)
[2024-11-16] MEDS: CHLORDIAZEPOXIDE 25MG CAPSULE PO SCH (15:49)
[2024-11-16 16:00] VITALS: BP 108/73; PULSE 104; RESP 16; TEMP 37; O2SAT 99
[2024-11-16 17:05] LABS: CREATININE 1.2 mg/dL (0.6-1.3)
[2024-11-16 17:06] LABS: UREA NITROGEN BLOOD 8 mg/dL (9-23)
[2024-11-16] MEDS: MVI, ADULT NO.1 10 ML, THIAMINE HCL 100 MG, FOLIC ACID 1 MG in SODIUM CHLORIDE 0.9% 1,0... IV SCH (17:06)
[2024-11-16 17:15] LABS: PHOSPHORUS 0.7 mg/dL (2.5-4.9)
[2024-11-16 17:16] LABS: INR 1.0
[2024-11-16] MEDS ORDERED: POTASSIUM PHOSPHATE 30 MMOL in SODIUM CHLORIDE 0.9% 490 ML IV ONE (18:30)
[2024-11-16 20:00] VITALS: BP 105/73; PULSE 97; RESP 18; TEMP 37; O2SAT 98
[2024-11-16] MEDS: SODIUM PHOSPHATE IV SCH (21:19)
[2024-11-16] MEDS: WATER IV SCH (21:19)
[2024-11-16] MEDS: DEXT 5% IV SCH (21:19)
[2024-11-17] VITALS (7 sets, daily range): BP systolic 111–132; BP diastolic 62–86; PULSE 85–110; RESP 18–20; TEMP 36.2–37; O2SAT 97–99
[2024-11-17 06:34] LABS: *AMPHETAMINES SCREEN URINE NEGATIVE (NEGATIVE); *BARBITURATES SCREEN URINE NEGATIVE (NEGATIVE); *BENZODIAZEPINES SCREEN URINE NEGATIVE (NEGATIVE); *COCAINE SCREEN URINE NEGATIVE (NEGATIVE); CANNABINOID URINE SCREEN NEGATIVE (NEGATIVE); ECSTASY MDMA SCREEN URINE NEGATIVE (NEGATIVE); METHADONE URINE SCREEN NEGATIVE (NEGATIVE); OPIATES URINE SCREEN NEGATIVE (NEGATIVE); PHENCYCLIDINE URINE SCREEN NEGATIVE (NEGATIVE)
[2024-11-17] MEDS: PANTOPRAZOLE 40MG DR TABLET PO SCH (06:42)
[2024-11-17 06:45] LABS: PLATELET 64 x1000/uL (130-400); RED BLOOD CELL COUNT 4.44 mill/uL (4.7-6.1); RED CELL DISTRIBUTION WIDTH 16.9 % (11.6-14.6)
[2024-11-17 07:37] LABS: CREATININE 1.0 mg/dL (0.6-1.3); TRIGLYCERIDE 173 mg/dL (0-150); UREA NITROGEN BLOOD 7 mg/dL (9-23)
[2024-11-17 07:38] LABS: LDL CHOLESTEROL 35 mg/dL (5-100)
[2024-11-17 07:39] LABS: PHOSPHORUS 1.7 mg/dL (2.5-4.9)
[2024-11-17 07:40] LABS: T4 FREE 1.16 ng/dL (0.89-1.76)
[2024-11-17] MEDS ORDERED: FOLIC ACID 1MG TABLET PO SCH (09:00)
[2024-11-17] MEDS ORDERED: THIAMINE HCL 100 MG/1 ML 2ML VIAL IM SCH (09:00)
[2024-11-17] MEDS ORDERED: MULTIVITAMINS,THER W-MINERALS TABLET PO SCH (09:00)
[2024-11-17 10:39] LABS: CLARITY URINE TURBID (CLEAR); COLOR URINE ORANGE (YELLOW); GLUCOSE URINE NEGATIVE (NEGATIVE); KETONES URINE 4+ (NEGATIVE); LEUKOCYTE ESTERASE URINE 1+ (NEGATIVE); NITRITE URINE POSITIVE (NEGATIVE); OCCULT BLOOD URINE NEGATIVE (NEGATIVE); PH URINE 7.0 (4.5-8.0); PROTEIN URINE 2+ (NEGATIVE); SPECIFIC GRAVITY URINE 1.031 (1.005-1.030); UROBILINOGEN URINE 1.0 E.U./dL (0.2-1.0)
[2024-11-17] MEDS: POTASSIUM CHLORIDE 20MEQ/PACKET PO SCH (10:40)
[2024-11-17] MEDS: MULTIVITAMINS,THER W-MINERALS TABLET PO SCH (10:41)
[2024-11-17] MEDS: FOLIC ACID 1MG TABLET PO SCH (10:42)
[2024-11-17] MEDS: THIAMINE HCL 100 MG/1 ML 2ML VIAL IM SCH (10:47)
[2024-11-17 11:14] LABS: FINE GRANULAR CASTS URINE 0-5 /lpf
[2024-11-17 11:18] LABS: COARSE GRANULAR CASTS URINE 0-5 /lpf
[2024-11-17 11:19] LABS: HYALINE CASTS URINE 0-5 /lpf
[2024-11-17 11:21] LABS: BACTERIA URINE TRACE; RBC URINE NONE SEEN /hpf (0-2); SQUAMOUS EPITHELIAL CELL URINE RARE /lpf (RARE/1+)
[2024-11-17] MEDS: POTASSIUM PHOSPHATE 20 MMOL in DEXT 5% WATER 243.3333 ML IV SCH (15:42)
[2024-11-18] VITALS: BP 91/62; PULSE 98; RESP 18; TEMP 36.6; O2SAT 95
[2024-11-18 04:00] VITALS: BP 102/74; PULSE 75; RESP 18; TEMP 36.4; O2SAT 96
[2024-11-18 07:18] LABS: HEMATOCRIT. 39.4 % (42.0-52.0); HEMOGLOBIN. 12.9 g/dL (14.0-18.0); MEAN PLATELET VOLUME 10.6 fl (7.4-10.4); PLATELET 65 x1000/uL (130-400); RED BLOOD CELL COUNT 4.12 mill/uL (4.7-6.1); RED CELL DISTRIBUTION WIDTH 16.5 % (11.6-14.6)
[2024-11-18 07:24] LABS: CREATININE 0.8 mg/dL (0.6-1.3); UREA NITROGEN BLOOD 8 mg/dL (9-23)
[2024-11-18 07:25] LABS: PROTEIN TOTAL 5.8 g/dL (6.0-8.3)
[2024-11-18 07:26] LABS: ASPARTATE AMINOTRANSFERASE 164 IU/L (<34); PHOSPHORUS 2.8 mg/dL (2.5-4.9)
[2024-11-18 07:27] LABS: BILIRUBIN TOTAL 1.0 mg/dL (0.1-1.0)
[2024-11-18 08:00] VITALS: BP 108/73; PULSE 102; RESP 20; TEMP 36.6; O2SAT 100
[2024-11-18 08:13] LABS: HEPATITIS A AB IGM NEGATIVE (Negative)
[2024-11-18 08:14] LABS: HEPATITIS B CORE AB IGM NEGATIVE (Negative); HEPATITIS C AB NON REACTIVE (Neg) (Negative)
[2024-11-18] MEDS: POTASSIUM CHLORIDE 20MEQ TABLET SR PO SCH (08:20)
[2024-11-18] MEDS: LACTULOSE 20G/30ML UDC PO SCH (09:45)
[2024-11-18 13:14] LABS: BAND% 2.0 % (1.0-6.0); EOSINOPHILS % MANUAL 5.0 % (0.0-5.0); LYMPHOCYTES % MANUAL 26.0 % (20.0-50.0); MONOCYTES % MANUAL 10.0 % (2.0-8.0); NEUTROPHILS % MANUAL 57.0 % (45.0-75.0)
[2024-11-18 13:17] LABS: PLATELET ESTIMATE DECREASED
[2024-11-19] MEDS ORDERED: THIAMINE HCL 100MG TABLET PO SCH (09:00)
[2024-11-20] MEDS ORDERED: THIAMINE HCL 100MG TABLET PO SCH (09:00)
== END 2024-11-18 11:46 | disposition left against medical advice (07) | DRG 432 ==
LOC: ER 09:02 → 8WST 12:07 → EDBEDREQTM 12:13 → EDBEDREQ 12:13 → ENRESERV 12:25
PROVIDERS: ADMIT Hospitalist; ATTEND Hospitalist
DX: K70.30 Alcoholic cirrhosis of liver without ascites (principal); G93.41 Metabolic encephalopathy; E87.20 Acidosis, unspecified; F10.239 Alcohol dependence with withdrawal, unspecified; E87.1 Hypo-osmolality and hyponatremia; N39.0 Urinary tract infection, site not specified; Z53.21 Procedure and treatment not carried out due to patient leaving prior to being seen by health care provider; K70.10 Alcoholic hepatitis without ascites; D69.6 Thrombocytopenia, unspecified; E83.39 Other disorders of phosphorus metabolism; F17.210 Nicotine dependence, cigarettes, uncomplicated; D69.59 Other secondary thrombocytopenia; K76.0 Fatty (change of) liver, not elsewhere classified; Z79.899 Other long term (current) drug therapy
CPT/HCPCS: 36415; 36600; 71045; 76700; 80048; 80053; 80061; 80076; 80305; 80320; 81003; 82105; 82140; 82375; 82550; 82607; 82746; 82805; 82977; 83036; 83605; 83735; 83880; 83930; 83935; 84100; 84145; 84439; 84443; 85025; 85027; 85379; 86705; 86709; 87340; 93005; 94640; 99291; J2060; J3411; J3490; J7030; J7060; J7070; G0480